=== PATIENT | female | born 1945 | race African-American/Black ===

== ENCOUNTER 2019-11-09 08:49 | Emergency (ER) | payer MEDICARE ==
[~2019-11-09] VITALS: Ht 154.9 cm; Wt 69.0 kg
[2019-11-09 09:05] VITALS: BP 148/85
== END 2019-11-09 09:40 | disposition home or self-care (01) ==
LOC: ER 08:49
DX: M19.90 Unspecified osteoarthritis, unspecified site (principal); E11.9 Type 2 diabetes mellitus without complications; I10 Essential (primary) hypertension; Z91.040 Latex allergy status; Z88.4 Allergy status to anesthetic agent
CPT/HCPCS: 99281

== ENCOUNTER → 2019-11-09 | Outpatient (CLI) | payer MEDICARE ==
[2019-11-09 10:24] LABS: BASOPHILS % 1.1 % (0.0-2.0); EOSINOPHILS % 1.2 % (0.0-5.0); HEMATOCRIT. 38.2 % (36.0-48.0); HEMOGLOBIN. 12.9 g/dL (12.0-16.0); LYMPHOCYTES % 29.8 % (20.0-50.0); MEAN CORPUSCULAR HEMOGLOBIN 31.1 pg (28.0-32.0); MEAN CORPUSCULAR VOLUME 92.1 fL (81.0-99.0); MEAN PLATELET VOLUME 9.5 fl (7.4-10.4); MONOCYTES % 7.7 % (2.0-8.0); NEUTROPHILS % 60.2 % (40.0-76.0); PLATELET 278 x1000/uL (130-400); RED BLOOD CELL COUNT 4.15 mill/uL (4.2-5.4); RED CELL DISTRIBUTION WIDTH 14.4 % (11.6-14.6)
[2019-11-09 10:28] LABS: CHLORIDE 104 mEq/L (98-107)
[2019-11-09 10:35] LABS: LDL CHOLESTEROL 144 mg/dL (5-100)
[2019-11-09 10:37] LABS: HDL CHOLESTEROL 62 mg/dL (40-59)
[2019-11-10 10:09] LABS: *CREATININE RANDOM URINE 69.7 mg/dL (Not Estab.); MICROALBUMIN RANDOM URINE 10.1 ug/mL (Not Estab.)
== END | disposition home or self-care (01) ==
LOC: LAB 09:38
DX: E11.9 Type 2 diabetes mellitus without complications (principal); M19.90 Unspecified osteoarthritis, unspecified site; I10 Essential (primary) hypertension
CPT/HCPCS: 36415; 80053; 80061; 82043; 82570; 84443; 85025; 85651